=== PATIENT | male | born 1980 | race Caucasian/White ===

== ENCOUNTER 2017-03-11 00:54 | Emergency (ER) | payer OTHER ==
[~2017-03-11] VITALS: Ht 182.9 cm; Wt 111.5 kg
[~2017-03-11 00:54] MED LIST: ONDA4TAB7 SL
[2017-03-11 00:58] VITALS: TEMP 36.7; Ht 182.9 cm; Wt 111.5 kg
[2017-03-11] MEDS ORDERED: SODIUM CHLORIDE 0.9% 1000ML 1,000 ML IV STA ×3 (01:09→03:27)
[2017-03-11] MEDS ORDERED: HYDROmorphone INJ 0.5 MG/0.5 ML SYR IV STA (01:09)
[2017-03-11] MEDS ORDERED: ONDANSETRON INJ 2 MG/ML 2 ML VIAL IV STA (01:09)
--- NOTE | 2017-03-11 01:14 | EMERGENCY ROOM VISIT NOTE ---
History Report prepared by Fidel: Nirmal Reeves Under the Supervision of: Dr. Edward Sloan M.D. First contact with patient: 01:01 Chief Complaint: KIDNEY STONE Stated Complaint: PAIN IN RT ABD RADIATING TO BACK History of Present Illness The patient is a 37 year old male who presents to the Emergency Room with complaints of persistent right sided abdominal pain since 0 tonight. The pain is radiating towards the right side of his back and is rated 8/10 in severity. The patient was in the ED two years ago diagnosed with a kidney stone on the same side. The patient believes that he already passed two stones tonight and that he is currently passing another one. His pain is consistent with the past kidney stone. He denies radiation to the groin. He also denies leg swelling. He did vomit tonight. The patient had Flomax [employer] but did not take anything for pain. The patient denies recent illness. Source of History: patient Onset: 2229 Position: abdomen (right side) Symptom Intensity: 8/10 Timing: other (persistent) Associated Symptoms: + back pain, + vomiting Review of Systems See HPI for pertinent positives & negatives. A total of 10 systems reviewed and were otherwise negative. Past Medical & Surgical Medical Problems: (1) Kidney stone on right side Family History No pertinent family history Social History Smoking Status: Never Smoker Housing Status: lives with family Current/Historical Medications Scheduled Multivitamin (Multivitamin), 1 TAB PO DAILY Ondasetron Odt (Zofran Odt), 4-8 MG SL Q6H Tamsulosin Hcl (Flomax), 1 CAP PO DAILY Scheduled PRN Oxycodone Immediate Rel Tab (Roxicodone Ir), 1-2 TAB PO Q4H PRN for Severe Pain Allergies Coded Allergies: No Known Allergies (Unverified , 03/11/17) Physical Exam Vital Signs Date Time Temp Pulse Resp B/P Pulse Ox O2 Delivery O2 Flow Rate FiO2 03/11/17 06:31 78 18 154/75 96 Room Air 03/11/17 06:07 70 18 137/88 92 Room Air 03/11/17 05:28 65 18 136/85 92 Room Air 03/11/17 04:30 67 18 136/82 92 Room Air 03/11/17 03:07 68 18 134/84 99 Nasal Cannula 2.0 03/11/17 02:33 98 Nasal Cannula 2.0 03/11/17 02:14 79 18 133/82 96 Room Air 03/11/17 01:22 91 18 98 Room Air 03/11/17 00:58 36.7 76 20 150/89 99 Room Air Physical Exam GENERAL: Patient is uncomfortable appearing in moderate distress. HEENT: No acute trauma, normocephalic atraumatic, mucous membranes moist, no nasal congestion, no scleral icterus. NECK: No stridor, no adenopathy, no meningismus, trachea is midline. LUNGS: No dyspnea. Clear to auscultation and equal bilaterally. No wheeze, no rhonchi. HEART: Regular rate and rhythm. No murmurs, rubs, gallops appreciated. ABDOMEN: Soft, nontender, bowel sounds positive, no masses appreciated, no peritonitis. BACK: No midline tenderness. Vague right CVA tenderness. EXTREMITIES: Normal motion all extremities, no cyanosis, no edema. NEUROLOGIC: Alert and oriented, no acute motor or sensory deficits, no focal weakness, cranial nerves grossly intact. SKIN: No rash, no jaundice, no diaphoresis. Medical Decision & Procedures ER Provider Diagnostic Interpretation: Radiology results and stated below per my review and radiologist interpretation: US RENAL: Mild right hydronephrosis. No hydronephrosis on the left. Kidneys are normal size and echogenicity. Radiologist: Pierce Smith MD from [facility]. Laboratory Results 03/11/17 01:07 Red Blood Count 5.38, Mean Corpuscular Volume 84.0, Mean Corpuscular Hemoglobin 29.2, Mean Corpuscular Hemoglobin Concent 34.7, Mean Platelet Volume 9.1, Neutrophils (%) (Auto) 78.2, Lymphocytes (%) (Auto) 15.5, Monocytes (%) (Auto) 5.8, Eosinophils (%) (Auto) 0.2, Basophils (%) (Auto) 0.1, Neutrophils # (Auto) 9.92, Lymphocytes # (Auto) 1.96, Monocytes # (Auto) 0.74, Eosinophils # (Auto) 0.02, Basophils # (Auto) 0.01 03/11/17 01:07 Test 03/11/17 00:00 03/11/17 01:07 Urine Color YELLOW Urine Appearance CLOUDY (CLEAR) Urine pH 6.5 (4.5-7.5) Urine Specific [place] 1.028 (1.000-1.030) Urine Protein NEG (NEG) Urine Glucose (UA) NEG (NEG) Urine Ketones 1+ (NEG) Urine Occult Blood TRACE (NEG) Urine Nitrite NEG (NEG) Urine Bilirubin NEG (NEG) Urine Urobilinogen NEG (NEG) Urine Leukocyte Esterase NEG (NEG) White Blood Count 12.68 K/uL (4.8-10.8) Red Blood Count 5.38 M/uL (4.7-6.1) Hemoglobin 15.7 g/dL (14.0-18.0) Hematocrit 45.2 % (42-52) Mean Corpuscular Volume 84.0 fL (80-100) Mean Corpuscular Hemoglobin 29.2 pg (25-34) Mean Corpuscular Hemoglobin Concent 34.7 g/dl (32-36) Platelet Count 216 K/uL (130-400) Mean Platelet Volume 9.1 fL (7.4-10.4) Neutrophils (%) (Auto) 78.2 % Lymphocytes (%) (Auto) 15.5 % Monocytes (%) (Auto) 5.8 % Eosinophils (%) (Auto) 0.2 % Basophils (%) (Auto) 0.1 % Neutrophils # (Auto) 9.92 K/uL (1.4-6.5) Lymphocytes # (Auto) 1.96 K/uL (1.2-3.4) Monocytes # (Auto) 0.74 K/uL (0.11-0.59) Eosinophils # (Auto) 0.02 K/uL (0-0.5) Basophils # (Auto) 0.01 K/uL (0-0.2) RDW Standard Deviation 41.0 fL (36.4-46.3) RDW Coefficient of Variation 13.4 % (11.5-14.5) Immature Granulocyte % (Auto) 0.2 % Immature Granulocyte # (Auto) 0.03 K/uL (0.00-0.02) Anion Gap 9.0 mmol/L (3-11) Est Creatinine Clear Calc Drug Dose 107.6 ml/min Estimated GFR () 88.4 Estimated GFR (Non- 76.3 BUN/Creatinine Ratio 19.2 (10-20) Calcium Level 9.2 mg/dl (8.5-10.1) Chemistry Specimen Hemolysis Laboratory results as reviewed by me. Medications Administered Medications (Trade) Dose Ordered Sig/Jaime Route Start Time Stop Time Status Last Admin Dose Admin Hydromorphone HCl (Dilaudid Inj) 0.5 mg NOW STAT IV 03/11/17 01:09 03/11/17 01:11 DC 03/11/17 01:17 0.5 MG Hydromorphone HCl (Dilaudid Inj) 0.5 mg Q15M PRN IV 03/11/17 01:15 03/11/17 06:48 DC 03/11/17 06:01 0.5 MG Ondansetron HCl 4 mg 4 mg NOW STAT IV 03/11/17 01:09 03/11/17 01:12 DC 03/11/17 01:17 4 MG Sodium Chloride 1,000 ml @ 999 mls/hr Q1H1M STAT IV 03/11/17 01:09 03/11/17 02:09 DC 03/11/17 01:16 999 MLS/HR Sodium Chloride 1,000 ml @ 999 mls/hr Q1H1M STAT IV 03/11/17 02:09 03/11/17 03:09 DC 03/11/17 02:13 999 MLS/HR Sodium Chloride (Nss 1000ml) 1,000 ml @ 125 mls/hr Q8H STAT IV 03/11/17 03:27 03/11/17 06:48 DC 03/11/17 03:38 125 MLS/HR Oxycodone HCl (Roxicodone Immediate Rel 5MG Home Pack) 1 homepack UD ONCE PO 03/11/17 06:15 03/11/17 06:16 DC 03/11/17 06:28 1 HOMEPACK Ondansetron HCl (ZOFRAN ODT 4MG Home Pack) 1 homepack UD ONCE PO 03/11/17 06:15 03/11/17 06:16 DC 03/11/17 06:28 1 HOMEPACK ED Course 0105: The patient was evaluated in room A2. A complete history and physical exam was performed. 0109: Ordered Dilaudid 0.5 mg IV, Zofran 4 mg IV, NSS 1000 ml @ 999 mls/hr. 0115: Ordered Dilaudid 0.5 mg IV PRN. 0155: The patient is currently at ultrasound. 0208: The patient was feeling better but started having increased pain over the past few minutes. He will receive a second dose of Dilaudid. 0209: Ordered NSS 1000 ml @ 999 mls/hr. 0327: Ordered NSS 1000 ml @ 125 mls/hr. 0530: The patient was sleeping in no distress. 0615: Zofran Odt 4 mg PO homepack, Oxycodone IR 5 mg PO homepack. Medical Decision Differential: Renal Colic, Pyelonephritis, Hydronephrosis, Appendicitis, Diverticulitis, Retroperitoneal Bleed/Infection, Aortic Pathology, MSK, Neurologic Pathology, amongst other pathologies entertained. 37 yr old male arrives with acute right flank pain similar to previous kidney stone [address] then had shown nephrolithiasis. US here consistent with mild hydro which given symptoms consistent with ureteral stone. Mild WBC elevation though no fever. Labs otherwise look OK. UA consistent with blood, no infection. Feeling vastly improved. Given fluids throughout evening and monitored without further issue other than periodic discomfort. Standard DC instructions reviewed with patient and . Oxy/Zofran/Flomax as outpt with instructions of these reviewed. Impression Primary Impression: Right ureteral calculus Additional Impression: Hydronephrosis, right Scribe Attestation The scribe's documentation has been prepared under my direction and personally reviewed by me in its entirety. I confirm that the note above accurately reflects all work, treatment, procedures, and medical decision making performed by me. Departure Information Dispostion Home / Self-Care Prescriptions Tamsulosin Hcl (FLOMAX) 0.4 Mg Cap 1 CAP PO DAILY for 7 Days, #7 CAP 5 Refills Prov: Edward Sloan M.D. 03/11/17 Ondasetron Odt (ZOFRAN ODT) 4 Mg Tab 4-8 MG SL Q6H for Nausea, #20 TAB Prov: Edward Sloan M.D. 03/11/17 Oxycodone Immediate Rel Tab (ROXICODONE IR) 5 Mg Tab 1-2 TAB PO Q4H Y for Severe Pain, #20 TAB Prov: Edward Sloan M.D. 03/11/17 Referrals Param Alston MD, Urology Forms HOME CARE DOCUMENTATION FORM, IMPORTANT VISIT INFORMATION, Work Instructions Patient Instructions Kidney Stones - [facility], [facility] Additional Instructions Return if fevers, vomiting, worsening pain or other concerns. You have received a narcotic pain medication prescription. These medications may cause drowsiness and should not be used with other sedative medications. Do not drive, drink alcohol, perform dangerous activities, nor make important decisions after taking these medications. correction use or inappropriate use may lead to addiction. Problem Qualifiers
[2017-03-11 01:19] LABS: BASO % 0.1 %; BASO ABS # 0.01 K/uL (0-0.2); COMPLETE YES; EOS % 0.2 %; HEMATOCRIT 45.2 % (42-52); IG% 0.2 %; LYMPH % 15.5 %; LYMPH ABS # 1.96 K/uL (1.2-3.4); MEAN CORPUSCULAR HEMOGLOBIN 29.2 pg (25-34); MEAN CORPUSCULAR HGB CONC 34.7 g/dl (32-36); MEAN PLATELET VOLUME 9.1 fL (7.4-10.4); MONO % 5.8 %; NEUT % 78.2 %; PLATELET COUNT 216 K/uL (130-400); RED BLOOD COUNT 5.38 M/uL (4.7-6.1); WHITE BLOOD COUNT 12.68 K/uL (4.8-10.8)
[2017-03-11 01:41] LABS: BUN/CREATININE RATIO 19.2 (10-20); CALCIUM 9.2 mg/dl (8.5-10.1); CREATININE 1.2 mg/dl (0.60-1.40); POTASSIUM 3.6 mmol/L (3.5-5.1)
[2017-03-11] MEDS ORDERED: MULT-506 PO (01:43)
[2017-03-11] MEDS: HYDROmorphone INJ 0.5 MG/0.5 ML SYR IV PRN ×4 (02:09→06:01)
[2017-03-11 02:33] VITALS: O2SAT 98
[2017-03-11] MEDS ORDERED: ONDA4TAB10 SL (06:07)
[2017-03-11] MEDS ORDERED: OXYC1TAB3 PO (06:07)
[2017-03-11] MEDS ORDERED: TAMS0.4C38 PO (06:09)
[2017-03-11] MEDS ORDERED: ONDANSETRON HOME PACK 4MG OD TAB PO ONE (06:15)
[2017-03-11] MEDS ORDERED: OXYCODONE IR HOME PACK PO ONE (06:15)
[2017-03-11 06:31] VITALS: BP 154/75; PULSE 78; O2SAT 96
[2017-03-11 06:32] LABS: URINE APPEARANCE CLOUDY (CLEAR); URINE BILIRUBIN NEG (NEG); URINE COLOR YELLOW; URINE EPITHELIAL CELL AUTO >30 /lpf (0-5); URINE NITRITE NEG (NEG); URINE PH 6.5 (4.5-7.5); URINE SPECIFIC GRAVITY 1.028 (1.000-1.030); UROBILINOGEN NEG (NEG); ZZUR CULT IF INDIC CLEAN CATCH YES
[2017-03-11 06:41] LABS: MANUAL MICROSCOPIC REQUIRED? NO; REVIEW REQ? YES
--- NOTE | 2017-03-11 07:12 | DIAGNOSTIC IMAGING REPORT ---
RENAL ULTRASOUND HISTORY: right flank pain, h/o stones COMPARISON: Abdomen and pelvis CT 04/24/2015. FINDINGS: Right kidney: 12.5 cm. Mild hydronephrosis. Normal corticomedullary differentiation and cortical thickness. Left kidney: 12.7 cm. No hydronephrosis. Normal corticomedullary differentiation and cortical thickness. Bladder: No bladder wall thickening. IMPRESSION: Mild right hydronephrosis. Normal left kidney. Electronically signed by: Angel Mary M.D. 03/11/2017 7:10 AM Dictated Date/Time: 03/11/2017 7:09 AM
== END 2017-03-11 06:35 | disposition home or self-care (01) ==
LOC: C.EDB 00:55 → C.EDA 06:35
DX: N20.1 Calculus of ureter (principal); N13.30 Unspecified hydronephrosis; Z87.442 Personal history of urinary calculi

== ENCOUNTER → 2018-06-26 | Outpatient (CLI) | payer OTHER ==
[~2018-06-26] MED LIST changes: +MULT-506 PO; -ONDA4TAB7 SL; +TAMS0.4C38 PO
[2018-06-26 18:14] LABS: BASO % 0.3 %; BASO ABS # 0.02 K/uL (0-0.2); EOS % 0.3 %; EOS ABS # 0.02 K/uL (0-0.5); HEMATOCRIT 45.2 % (42-52); HEMOGLOBIN 15.2 g/dL (14.0-18.0); IG# 0.02 K/uL (0.00-0.02); LYMPH % 32.8 %; LYMPH ABS # 2.44 K/uL (1.2-3.4); MEAN CELL VOLUME 85.8 fL (80-100); MEAN CORPUSCULAR HEMOGLOBIN 28.8 pg (25-34); MEAN CORPUSCULAR HGB CONC 33.6 g/dl (32-36); MEAN PLATELET VOLUME 9.9 fL (7.4-10.4); MONO % 6.2 %; MONO ABS # 0.46 K/uL (0.11-0.59); NEUT % 60.1 %; NEUT ABS # 4.47 K/uL (1.4-6.5); PLATELET COUNT 224 K/uL (130-400); RED CELL DISTRIBUTION WIDTH CV 13.3 % (11.5-14.5); RED CELL DISTRIBUTION WIDTH SD 41.8 fL (36.4-46.3); WHITE BLOOD COUNT 7.43 K/uL (4.8-10.8)
[2018-06-26 18:26] LABS: ALBUMIN 4.3 gm/dl (3.4-5.0); ALKALINE PHOSPHATASE 107 U/L (45-117); ALT/SGPT 41 U/L (12-78); AST/SGOT 27 U/L (15-37); BLOOD UREA NITROGEN 21 mg/dl (7-18); CALCIUM 9.4 mg/dl (8.5-10.1); CARBON DIOXIDE 26 mmol/L (21-32); CHOLESTEROL 249 mg/dl (0-200); CREATININE 1.24 mg/dl (0.60-1.40); GLUCOSE 80 mg/dl (70-99); LDL CHOLESTEROL (DIRECT) 189 mg/dl; POTASSIUM 3.8 mmol/L (3.5-5.1); SODIUM 139 mmol/L (136-145)
== END | disposition home or self-care (01) ==
LOC: C.LABSPEC 17:43
PROVIDERS: ATTEND Internal Medicine
DX: E78.5 Hyperlipidemia, unspecified (principal); R22.32 Localized swelling, mass and lump, left upper limb; T14.8XXA Other injury of unspecified body region, initial encounter; W57.XXXA Bitten or stung by nonvenomous insect and other nonvenomous arthropods, initial encounter